=== PATIENT | female | born 1965 | race Caucasian/White ===

== ENCOUNTER → 2016-12-09 | Outpatient (CLI) | payer BC ==
[~2016-12-09] MED LIST: ALBUAER2 INH; CHOL20007 PO; LEVO150T PO; MOME6000 NAE; NAPR1TAB9 PO; PANT40TA PO; PRT/20 PO; SYN100 PO; VALA1TAB2 PO; ZNTT/150 PO
--- NOTE | 2016-12-09 11:35 | DIAGNOSTIC IMAGING REPORT ---
THYROID ULTRASOUND CLINICAL HISTORY: Thyroid nodule. COMPARISON STUDY: Thyroid ultrasound February 27, 2008. TECHNIQUE: Sonography of the thyroid gland was performed. FINDINGS: The right thyroid lobe measures 4.1 x 1.8 x 1.7 cm and the left lobe measures 4.1 x 1.2 x 1.5 cm. The gland is heterogeneous. A suspected isoechoic nodule within the upper pole of the right lobe measures 1.4 x 0.9 x 1 cm. This is unchanged since exam of February 27, 2008 when allowing for measurement variability. No additional thyroid nodules are present. IMPRESSION: 1. No change in the 1.4 cm right lobe thyroid nodule since exam of February 27, 2008. 2. Normal size heterogeneous thyroid gland. Electronically signed by: Zbigniew Redman M.D. 12/09/2016 11:34 AM Dictated Date/Time: 12/09/2016 11:32 AM
== END | disposition home or self-care (01) ==
LOC: C.ULTR 09:46
PROVIDERS: ATTEND Internal Medicine Endocrinology, Diabetes & Metabolism
DX: E04.1 Nontoxic single thyroid nodule (principal)

== ENCOUNTER → 2016-12-09 | Outpatient (CLI) | payer BC ==
--- NOTE | 2016-12-09 11:30 | DIAGNOSTIC IMAGING REPORT ---
LEFT KNEE MRI HISTORY: Left knee pain. COMPARISON STUDY: Left knee 09/21/2016. TECHNIQUE: Multiplanar multisequence MRI of the left knee was performed according to standard department protocol without the use of contrast. FINDINGS: Menisci: The medial and lateral menisci are intact. Ligaments: Diffuse thickening and increased signal within the ACL consistent with mucoid degeneration. No evidence for tear. The PCL, MCL, and LCL are intact. Extensor mechanism: The quadriceps tendon and patellar ligament are intact. Articular cartilage and bone: No fracture or subluxation. Cystic focus within the proximal tibia favors an intraosseous ganglion. This measures 11 mm. Mild cartilage thinning within the central weightbearing portion of the medial femoral condyle and focal near full-thickness cartilage loss at the medial patellar facet. Joint effusion: Trace Soft tissues: Intact. IMPRESSION: 1. Mucoid degeneration of the ACL. 2. Mild osteoarthritis at described above. 3. Trace knee effusion. Electronically signed by: Dhruv Cuevas M.D. 12/09/2016 11:29 AM Dictated Date/Time: 12/09/2016 11:10 AM
== END | disposition home or self-care (01) ==
LOC: C.MRI 09:51
PROVIDERS: ATTEND Physical Medicine & Rehabilitation Sports Medicine
DX: S83.222A Peripheral tear of medial meniscus, current injury, left knee, initial encounter (principal); M89.372 Hypertrophy of bone, left ankle and foot; X58.XXXA Exposure to other specified factors, initial encounter

== ENCOUNTER → 2016-12-16 | Outpatient (CLI) | payer BC | END | disposition home or self-care (01) | LOC: C.RDSM 13:15 | PROVIDERS: ATTEND Physical Medicine & Rehabilitation Sports Medicine | DX: M79.672 Pain in left foot (principal) ==

== ENCOUNTER → 2017-03-02 | Outpatient (CLI) | payer BC ==
--- NOTE | 2017-03-03 15:07 | MAMMOGRAPHY REPORT ---
BILATERAL DIGITAL SCREENING MAMMOGRAM TOMOSYNTHESIS WITH CAD: 03/02/2017 CLINICAL HISTORY: Routine screening. TECHNIQUE: Breast tomosynthesis in addition to standard 2D mammography was performed. Current study was also evaluated with a Computer Aided Detection (CAD) system. COMPARISON: Comparison is made to exams dated: 12/07/2015 mammogram, 11/07/2014 mammogram, 07/22/2013 mammogram, 05/09/2012 mammogram, 05/27/2010 mammogram - [facility], and 08/26/2008. BREAST COMPOSITION: There are scattered areas of fibroglandular density in both breasts. FINDINGS: No suspicious masses, calcifications, or areas of architectural distortion are noted in e ither breast. There has been no significant interval change compared to prior exams. A biopsy marke r clip is again noted in the left upper outer quadrant. IMPRESSION: ACR BI-RADS CATEGORY 2: BENIGN There is no mammographic evidence of malignancy. A 1 year screening mammogram is recommended. The p atient will receive written notification of the results. Approximately 10% of breast cancers are not detected with mammography. A negative mammographic repor t should not delay biopsy if a clinically suggestive mass is present. Goldie Castro M.D. /:03/02/2017 16:16:31 Manager Operations: Gabriella ALVARADO)([place]), [facility] letter sent: Normal 1/2 BI-RADS Code: ACR BI-RADS Category 2: Benign
== END | disposition home or self-care (01) ==
LOC: C.MAMM 15:24
PROVIDERS: ATTEND Obstetrics & Gynecology
DX: Z12.31 Encounter for screening mammogram for malignant neoplasm of breast (principal)

== ENCOUNTER → 2017-05-03 | Day surgery (SDC) | payer BC ==
[2017-05-02 13:29] VITALS: Ht 168.9 cm; Wt 90.9 kg
[~2017-05-03] VITALS: Ht 168.9 cm; Wt 90.9 kg
[~2017-05-03] MED LIST changes: -ALBUAER2 INH; +LIDOCAINE HCL 2% 2 ML VIAL (20MG/ML) ONE; -PANT40TA PO; +PROPOFOL IV EMULSION 10 MG/ML 20 ML VIAL IV ONE; +SODIUM CHLORIDE 0.9% 500ML 500 ML IV ONE; -SYN100 PO
--- NOTE | 2017-05-03 15:40 | Endo History and Physical ---
History & Physical Date of Service: May 03, 2017. Chief Complaint: reflux Referring Physician: Daniela Rush History of Present Illness 51 yo CF who presents for EGD secondary to GERD Past Surgical History Hx Cardiac Surgery: No Hx Internal Defibrillator: No Hx Pacemaker: No Hx Abdominal Surgery: No Hx of Implantable Prosthesis: No Hx Post-Op Nausea and Vomiting: No Hx Cancer Surgery: No Hx Thoracic Surgery: No Hx Orthopedic: No Hx Urinary Tract Surgery: No Family History Polyp, IBD Social History Smoking Status: Former Smoker Hx Substance Use: No Hx Alcohol Use: Yes (2 GLASSES WINE 2X/WEEK) Allergies Coded Allergies: Sulfa Drugs (Verified Allergy, Unknown, RASH AND YEAST INFECTION, 05/03/17) Current Medications Reported Home Medications Medications Dose Route/Sig Max Daily Dose Days Date Category Vitamin D3 (Cholecalciferol) 2,000 Unit Tab 1 Tab PO HS 05/02/17 Reported Valtrex (Valacyclovir Hcl) 1 Gm Tab 1,000 Mg PO TID PRN 05/02/17 Reported Mometasone Furoate (Mometasone Furoate (Nasal)) 50 Mcg/Act Spr 2 [place] SHARLA HS 05/02/17 Reported Aleve (Naproxen) 220 Mg Tab 2 Tabs PO BID 05/02/17 Reported Zantac (Ranitidine HCl) 150 Mg Tab 150 Mg PO HS 05/02/17 Reported Protonix (Pantoprazole Sodium) 20 Mg Tab 20 Mg PO HS 05/02/17 Reported Synthroid (Levothyroxine Sodium) 150 Mcg Tab 150 Mcg PO QAM 05/02/17 Reported Vital Signs Weight (Kilograms): 90.91 Height (Feet): 5 Height (Inches): 6.5 Date Time Temp Pulse Resp B/P (MAP) Pulse Ox O2 Delivery O2 Flow Rate FiO2 05/03/17 15:05 36.8 65 18 139/79 (99) 97 Room Air Physical Exam General Appearance: WD/WN, no apparent distress Respiratory/Chest: Auscultation: breath sounds normal Cardiovascular: Heart Auscultation: RRR Abdomen: Bowel Sounds: normal Inspection & Palpation: soft, non-distended, no tenderness, guarding & rebound Assessment and Plan Assessment: 51 yo CF who presents for EGD secondary to GERD Plan: Proceed with EGD.
--- NOTE | 2017-05-03 16:06 | Discharge Instructions ---
Endoscopy Patient Instructions Date / Procedure(s) Performed May 03, 2017. EGD Allergy Information Coded Allergies: Sulfa Drugs (Verified Allergy, Unknown, RASH AND YEAST INFECTION, 05/03/17) Discharge Date / Findings May 03, 2017. Gastritis s/p biopsies Hiatal hernia Medication Instructions OK to resume all medications today as prescribed Reported Home Medications Medications Dose Route/Sig Max Daily Dose Days Date Category Vitamin D3 (Cholecalciferol) 2,000 Unit Tab 1 Tab PO HS 05/02/17 Reported Valtrex (Valacyclovir Hcl) 1 Gm Tab 1,000 Mg PO TID PRN 05/02/17 Reported Mometasone Furoate (Mometasone Furoate (Nasal)) 50 Mcg/Act Spr 2 [place] SHARLA HS 05/02/17 Reported Aleve (Naproxen) 220 Mg Tab 2 Tabs PO BID 05/02/17 Reported Zantac (Ranitidine HCl) 150 Mg Tab 150 Mg PO HS 05/02/17 Reported Protonix (Pantoprazole Sodium) 20 Mg Tab 20 Mg PO HS 05/02/17 Reported Synthroid (Levothyroxine Sodium) 150 Mcg Tab 150 Mcg PO QAM 05/02/17 Reported Provider Instructions Activity Restrictions - No exercising or heavy lifting for 24 hours. - Do not drink alcohol the day of the procedure. - Do not drive a car or operate machinery until the day after the procedure. - Do not make any important decisions or sign important papers in 24 hours after the procedure. Following Day: - Return to full activity which may include returning to work/school. Diet Start your diet with liquids and light foods (jello, soup, juice, toast). Then eat your usual diet if not nauseated. Treatment For Common After Affects For mild abdominal pain, bloating, or excessive gas: - Rest - Eat lightly - Lie on right side Follow-Up Information Follow-up with Daniela Rush as scheduled Anesthesia Information What You Should Know You have had a procedure that required some medicine to reduce anxiety and discomfort. This treatment is called moderate sedation. After receiving the treatment, you may be sleepy, but you will be able to breathe on your own. The effects of the treatment may last for several hours. Follow these instructions along with Activity/Diet recommendations noted above: * Do NOT do anything where dizziness or clumsiness would be dangerous. * Rest quietly at home today, then you can be up and about tomorrow. * Have a responsible person stay with you the rest of today. * You may have had an I.V. today. If so, you may take the dressing off later today. Recommendations Call your doctor if: * Trouble breathing * Continuous vomiting for more than 24 hours * Temperature above 101 degrees * Severe abdominal pain or bloating * Pain not relieved by pain medicine ordered * There is increased drainage or redness from any incision * A large amount of rectal bleeding greater than 2-3 tablespoons. (If you had a polyp/s removed or have hemorrhoids, a small amount of blood - from the rectum is to be expected.) * You have any unanswered questions or concerns. IN THE EVENT OF A SERIOUS EMERGENCY, GO TO THE NEAREST EMERGENCY ROOM Your discharge instructions were prepared by provider Timothy Prakash. Patient Instructions Signature Page Sole Chavez Patient (or Guardian) Signature/Date: I have read and understand the instructions given to me by my caregivers. Caregiver/RN/Doctor Signature/Date: The above-named patient and/or guardian has received patient instructions on this date. + Original Patient Signature Page (only) stays with chart. Please make copy for patient.
--- NOTE | 2017-05-03 16:13 | GI REPORT ---
Procedure Date: 05/03/2017 3:53 PM Procedure: Upper GI endoscopy Indications: Follow-up of gastro-esophageal reflux disease Medicines: Monitored Anesthesia Care Complications: No immediate complications. Estimated Blood Loss: Estimated blood loss: none. Procedure: Pre-Anesthesia Assessment: - Prior to the procedure, a History and Physical was performed, and patient medications and allergies were reviewed. The patient's tolerance of previous anesthesia was also reviewed. The risks and benefits of the procedure and the sedation options and risks were discussed with the patient. All questions were answered, and informed consent was obtained. Prior Anticoagulants: The patient has taken no previous anticoagulant or antiplatelet agents. ASA Grade Assessment: II - A patient with mild systemic disease. After reviewing the risks and benefits, the patient was deemed in satisfactory condition to undergo the procedure. After obtaining informed consent, the endoscope was passed under direct vision. Throughout the procedure, the patient's blood pressure, pulse, and oxygen saturations were monitored continuously. The scope was introduced through the mouth, and advanced to the second part of duodenum. The upper GI endoscopy was accomplished without difficulty. The patient tolerated the procedure well. Findings: The esophagus was normal. A small hiatus hernia was present. Localized mild inflammation characterized by erosions and erythema was found in the gastric antrum. Biopsies were taken with a cold forceps for histology. The examined duodenum was normal. Impression: - Normal esophagus. - Small hiatus hernia. - Gastritis. Biopsied. - Normal examined duodenum. Recommendation: - Resume previous diet. - Continue present medications. - Await pathology results. - Return to primary care physician as previously scheduled. Timothy Prakash, DO 05/03/2017 4:13:10 PM This report has been signed electronically. Note Initiated On: 05/03/2017 3:53 PM I attest to the content of the Intraoperative Record and orders documented therein, exceptions below
[2017-05-03 16:34] VITALS: BP 124/71; PULSE 63; O2SAT 99
--- NOTE | 2017-05-03 16:45 | Anesthesiology Progress Note ---
Anesthesia Post Op Note Date & Time May 03, 2017 at 16:45 Vital Signs Pain Intensity: 0 Vital Signs Past 12 Hours Date Time Temp Pulse Resp B/P (MAP) Pulse Ox O2 Delivery O2 Flow Rate FiO2 05/03/17 16:34 63 17 124/71 (88) 99 Room Air 05/03/17 16:19 60 17 119/86 (97) 98 Room Air 05/03/17 16:04 66 17 110/74 (86) 97 Room Air 05/03/17 15:05 36.8 65 18 139/79 (99) 97 Room Air Notes Mental Status: alert / awake / arousable, participated in evaluation Pt Amnestic to Procedure: Yes Nausea / Vomiting: adequately controlled Pain: adequately controlled Airway Patency, RR, SpO2: stable & adequate BP & HR: stable & adequate Hydration State: stable & adequate Anesthetic Complications: no major complications apparent
== END | disposition home or self-care (01) ==
LOC: C.GI 14:40
PROVIDERS: ATTEND Internal Medicine
DX: K21.9 Gastro-esophageal reflux disease without esophagitis (principal); K29.70 Gastritis, unspecified, without bleeding; K44.9 Diaphragmatic hernia without obstruction or gangrene; Z87.891 Personal history of nicotine dependence; Z90.89 Acquired absence of other organs; E03.9 Hypothyroidism, unspecified

== ENCOUNTER → 2017-07-31 | Outpatient (CLI) | payer BC ==
[~2017-07-31] MED LIST changes: -LIDOCAINE HCL 2% 2 ML VIAL (20MG/ML) ONE; -PROPOFOL IV EMULSION 10 MG/ML 20 ML VIAL IV ONE; -SODIUM CHLORIDE 0.9% 500ML 500 ML IV ONE
== END | disposition home or self-care (01) ==
LOC: C.RDSM 16:27
PROVIDERS: ATTEND Physical Medicine & Rehabilitation Sports Medicine
DX: M19.172 Post-traumatic osteoarthritis, left ankle and foot (principal)

== ENCOUNTER → 2017-07-31 | Outpatient (CLI) | payer BC ==
--- NOTE | 2017-07-31 11:12 | DIAGNOSTIC IMAGING REPORT ---
RIGHT FOOT 3 VIEWS CLINICAL HISTORY: Right foot pain. FINDINGS: 3 views of the right foot are compared to study dated 01/06/2016. The skeletal structures are osteopenic. No fracture is seen. Arthritic change is present at the first tarsometatarsal articulation. Bony spurring is noted at the base of the first metatarsal. The joint spaces are otherwise preserved. There are small dorsal and large plantar calcaneal enthesophytes. Degenerative spurring is seen along the dorsal aspect of the tarsal bones. A tiny os naviculari is incidentally noted. The overlying soft tissues are within normal limits. IMPRESSION: Osteopenia, heel spurs, and arthritic change as above. No acute bony abnormality is seen in the right foot. Electronically signed by: Mason Bloom M.D. 07/31/2017 11:10 AM Dictated Date/Time: 07/31/2017 11:07 AM
== END | disposition home or self-care (01) ==
LOC: C.RAD1850 10:52
PROVIDERS: ATTEND Nurse Practitioner Family
DX: M79.671 Pain in right foot (principal); M85.871 Other specified disorders of bone density and structure, right ankle and foot; M77.31 Calcaneal spur, right foot; M19.071 Primary osteoarthritis, right ankle and foot

== ENCOUNTER → 2017-10-12 | Outpatient (CLI) | payer BC ==
[~2017-10-12] MED LIST changes: +RANI150T85 PO; -ZNTT/150 PO
== END | disposition home or self-care (01) ==
LOC: C.PAPS 13:40
PROVIDERS: ATTEND Obstetrics & Gynecology
DX: Z01.419 Encounter for gynecological examination (general) (routine) without abnormal findings (principal)

== ENCOUNTER → 2018-01-12 | Outpatient (CLI) | payer OTHER ==
--- NOTE | 2018-01-12 10:06 | DIAGNOSTIC IMAGING REPORT ---
LEFT KNEE 3 VIEWS HISTORY: Left knee pain. COMPARISON: None. FINDINGS: There is no fracture or dislocation. Soft tissues are unremarkable. Tiny tricompartmental marginal osteophytes. No knee effusion. No erosions identified. Bone mineralization is intact. IMPRESSION: Minor arthritic change within the left knee. No fractures. No knee effusion. MTDD
--- NOTE | 2018-01-12 10:10 | DIAGNOSTIC IMAGING REPORT ---
LEFT KNEE 2 VIEWS HISTORY: Left knee pain. COMPARISON: None. FINDINGS: There is no fracture or dislocation. Soft tissues are unremarkable. Tiny tricompartmental marginal osteophytes. No knee effusion. No erosions identified. Bone mineralization is intact. IMPRESSION: Minor arthritic change within the left knee. No fractures. No knee effusion. Electronically signed by: Dhruv Cuevas M.D. 01/12/2018 10:08 AM Dictated Date/Time: 01/12/2018 10:08 AM
--- NOTE | 2018-01-12 10:10 | DIAGNOSTIC IMAGING REPORT ---
L HAND MIN 3 VIEWS ROUTINE CLINICAL HISTORY: Left hand pain. Positive NOEMÍ COMPARISON: None. DISCUSSION: The bony mineralization appears normal. No fractures are visualized. There is no erosive disease. There are moderate osteoarthritic changes the level the first carpal metacarpal joint. IMPRESSION: 1. No acute fractures 2. Moderate osteoarthritic changes at the level the first carpal metacarpal joint 3. No evidence of erosive disease Electronically signed by: Reuben Boateng M.D. 01/12/2018 10:08 AM Dictated Date/Time: 01/12/2018 10:07 AM
--- NOTE | 2018-01-12 10:12 | DIAGNOSTIC IMAGING REPORT ---
L ANKLE MIN 3 VIEWS ROUTINE, L FOOT MIN 3 VIEWS ROUTINE HISTORY: 52 years-old Female M79.671 Right foot painM25.571 Right ankle painR76.8 Positive AN acute left foot and ankle pain. COMPARISON: Right foot radiographs 07/31/2017 TECHNIQUE: 3 views of the left foot and 3 views of the left ankle FINDINGS: FOOT: Mild degenerative changes of the metatarsophalangeal and interphalangeal joints. Moderate marginal spurring is noted about the midfoot, notably at the tarsometatarsal joints, talonavicular and navicular cuneiform articulations. Moderate tibiotalar joint space narrowing with subcortical cystic changes. No definite erosions, acute fracture or subluxation identified. Moderate spurring about the calcaneus. Mild dorsal forefoot soft tissue swelling. ANKLE: Subcentimeter corticated bone fragments adjacent to the medial malleolus suggest accessory ossicles or old fracture fragments. Moderate degenerative changes of the tibia talar joint. No osteochondral defect of the talar dome. Degenerative changes about the midfoot as above. Mild soft tissue swelling of the lower leg with circumferential soft tissue swelling about the ankle. IMPRESSION: 1. No acute fracture or dislocation. 2. Moderate joint space narrowing with subchondral sclerosis and marginal osteophytosis about the midfoot and hindfoot without evidence of erosive arthropathy. 3. Mild soft tissue swelling of the lower leg, ankle and foot. The above report was generated using voice recognition software. It may contain grammatical, syntax or spelling errors. Electronically signed by: Zeferino Rankin M.D. 01/12/2018 10:10 AM Dictated Date/Time: 01/12/2018 10:09 AM
== END | disposition home or self-care (01) ==
LOC: C.RAD1850 09:31
PROVIDERS: ATTEND Internal Medicine Rheumatology
DX: M25.571 Pain in right ankle and joints of right foot (principal); M35.7 Hypermobility syndrome; M79.641 Pain in right hand; M79.642 Pain in left hand; M79.646 Pain in unspecified finger(s); M79.671 Pain in right foot; R76.8 Other specified abnormal immunological findings in serum

== ENCOUNTER → 2018-01-31 | Outpatient (CLI) | payer OTHER | END | disposition home or self-care (01) | LOC: C.LABSPEC 11:15 | PROVIDERS: ATTEND Nurse Practitioner Family | DX: J06.9 Acute upper respiratory infection, unspecified (principal) ==